=== PATIENT | male | born 1965 | race Caucasian/White ===

== ENCOUNTER 2022-11-18 12:41 | Emergency (ER) | payer MEDICAID ==
[~2022-11-18] VITALS: Ht 170.2 cm; Wt 74.8 kg
[2022-11-18 14:30] VITALS: BP_SYST 132
--- NOTE | 2022-11-18 16:59 | NUR ---
Patient to [facility] for evaluation.
--- NOTE | 2022-11-18 17:12 | NUR ---
ER at bedside examining patient.
[2022-11-18] MEDS ORDERED: MORPHINE 4 MG INJ. 4 MG/ML VIAL IM ONE (17:15)
[2022-11-18] MEDS ORDERED: HYDR-3917 PO ×2 (17:21→17:27)
[2022-11-18] MEDS ORDERED: IBUP-1971 PO ×2 (17:21→17:27)
[2022-11-18 17:27] VITALS: BP_SYST 129
--- NOTE | 2022-11-18 17:27 | NUR ---
Patient given written and verbal discharge instructions and verbalizes understanding. ER MD discussed with patient the results and treatment provided. Patient in stable condition. ID arm band removed. Rx of NORCO AND MOTRIN given. Patient educated on pain management and to follow up with PMD. Pain Scale 0/10 Opportunity for questions provided and answered. Medication side effect fact sheet provided.
== END 2022-11-18 17:27 | disposition home or self-care (01) ==
LOC: SED 12:41
DX: M54.50 Low back pain, unspecified (principal); Z79.899 Other long term (current) drug therapy
CPT/HCPCS: 99283; 96372; J2270